=== PATIENT | male | born 1995 | race Caucasian/White ===

== ENCOUNTER 2017-01-12 22:00 | Emergency (ER) | payer OTHER ==
[2017-01-12 22:07] VITALS: RESP 18; TEMP 98.8
[2017-01-12] MEDS ORDERED: PREDNISONE 20 MG TAB PO ONE (22:36)
[2017-01-12] MEDS ORDERED: AMOXICILLIN 250 MG CAP PO ONE (22:36)
[2017-01-12] MEDS ORDERED: PREDNISONE 20 MG TAB ONE (22:39)
[2017-01-12] MEDS ORDERED: AMOXICILLIN(FRIDGE) 125/5 ML BOTTLE ONE (22:40)
[2017-01-12] MEDS ORDERED: AMOXICILLIN(FRIDGE) 125/5 ML BOTTLE PO ONE (22:43)
[2017-01-12 22:53] VITALS: BP 143/75; PULSE 85; O2SAT 95
== END 2017-01-12 22:49 | disposition home or self-care (01) ==
LOC: ED 22:00
DX: J02.9 Acute pharyngitis, unspecified (principal)
CPT/HCPCS: 87430; 99283

== ENCOUNTER 2017-03-20 17:39 | Emergency (ER) | payer OTHER ==
[2017-03-20 17:59] VITALS: BP 164/100; PULSE 95; RESP 24; TEMP 98.6; O2SAT 96
== END 2017-03-20 18:22 | disposition home or self-care (01) ==
LOC: ED 17:39
DX: J02.9 Acute pharyngitis, unspecified (principal)
CPT/HCPCS: 87430; 99282

== ENCOUNTER 2018-04-01 06:30 | Emergency (ER) | payer OTHER ==
[2018-04-01] MEDS ORDERED: PROPARACAINE HCL 0.5% OPHTHALMIC SOL ONE (07:02)
[2018-04-01] MEDS ORDERED: PROPARACAINE HCL 0.5% OPHTHALMIC SOL OP ONE (07:04)
[2018-04-01 07:25] VITALS: RESP 16; TEMP 97.8
[2018-04-01 07:31] VITALS: O2SAT 96
[2018-04-01 07:55] VITALS: BP 142/97; PULSE 67
== END 2018-04-01 07:45 | disposition home or self-care (01) ==
LOC: ED 06:30
DX: W89.0XXA Exposure to welding light (arc), initial encounter (principal)
CPT/HCPCS: 99282; 99283; A9270-GY

== ENCOUNTER 2018-04-24 12:09 | Emergency (ER) | payer OTHER ==
[2018-04-24] MEDS ORDERED: CEFTRIAXONE 1 GM PDS IM ONE (12:38)
[2018-04-24] MEDS ORDERED: LIDOCAINE 1% W/EPI MPF 30 ML SOL SC ONE (12:38)
[2018-04-24] MEDS ORDERED: TDAP VACCINE 0.5 ML SUS IM ONE ×2 (13:26→13:27)
[2018-04-24] MEDS ORDERED: CEFTRIAXONE 1 GM PDS ONE (13:27)
[2018-04-24] MEDS ORDERED: BACITRACIN 500 U/GM OIN TOP ONE ×2 (13:29→13:30)
[2018-04-24 13:33] VITALS: RESP 16; TEMP 97.6
[2018-04-24 15:00] VITALS: BP 118/78; PULSE 66; O2SAT 96
== END 2018-04-24 13:54 | disposition home or self-care (01) ==
LOC: ED 12:09
DX: S01.112A Laceration without foreign body of left eyelid and periocular area, initial encounter (principal)
CPT/HCPCS: 12013; 90471; 90715; 96372; 99284; J0696; A6402; A9270-GY; J2001